=== PATIENT | female | born 1985 | race Caucasian/White ===

== ENCOUNTER 2019-02-24 01:07 | Emergency (ER) | payer OTHER ==
[2019-02-24 01:44] LABS: #Basophils 0.1 thou/uL (0.0-0.2); #Eosinphils 0.2 thou/uL (0.0-0.7); #Monocytes 0.7 thou/uL (0.11-0.59); #Neutrophils 5.8 thou/uL (1.40-6.50); %Basophils 0.8 % (0.0-1.0); %Eosinophils 1.5 % (0.0-10.0); %Lymphocytes 37.2 % (21.0-51.0); %Monocytes 6.7 % (0.0-10.0); %Neutrophils 53.9 % (42.0-75.0); Hemoglobin 13.3 g/dL (12.0-16.0); Mean Corpuscular HGB CONC 35.1 g/dL (32.0-36.0); Mean Corpuscular Hemoglobin 33.4 pg (27.0-31.0); Mean Platelet Volume 8.7 fL (7.4-10.4); Platelet Count 240 thou/uL (130-400); RBC Distribution Width 11.4 % (11.5-14.5); White Blood Cell (WBC) Count 10.8 thou/uL (4.8-10.8)
[2019-02-24 01:51] LABS: Bilirubin Negative (Negative); Blood, Urine Negative (Negative); Clarity CLEAR (Clear); Glucose, Urine (Dipstick) Negative (Negative); Leukocyte Negative (Negative); Nitrite Negative (Negative); Pregnancy Test - Urine (BHCG) Negative (Negative); Pregu Control Background? CLEAR/WHITE (CLR/WHITE); Pregu Control Bar Appear? YES (CONTROL BAR); Protein, Urine (Dipstick) Negative (Neg-Trace); Specific Gravity, Urine 1.026 (1.002-1.036); Urobilinogen 0.2 mg/dL (0.2-1.0); pH, Urine 6.5 (5.0-9.0)
[2019-02-24 01:52] LABS: Specific Gravity 1.026 (1.002-1.036)
[2019-02-24 02:01] LABS: ALT (SGPT) 40 U/L (8-55); AST (SGOT) 23 U/L (5-34); Albumin 4.1 g/dL (3.5-5.0); Alkaline Phosphatase 55 U/L (40-150); Anion Gap 12 mmol/L (10-20); BUN (Urea Nitrogen) 14 mg/dL (7.0-18.7); Bilirubin, Total 0.4 mg/dL (0.2-1.2); Calc. Creatinine Clearance 0 mL/min (70-130); Carbon Dioxide 24 mmol/L (22-29); Chloride 106 mmol/L (98-107); Estimated GFR-MDRD 78; Globulin 2.7 g/dL (2.4-3.5); Glucose 107 mg/dL (70-105); Lipase 24 U/L (8-78); Potassium 3.7 mmol/L (3.5-5.1); Protein, Total 6.8 g/dL (6.0-8.3); Sodium 138 mmol/L (136-145)
[2019-02-24] MEDS ORDERED: Ketorolac Tromethamine 30 MG/ML VIAL ONE (02:36)
[2019-02-24] MEDS ORDERED: cefTRIAXone\\ROCEPHIN 250 MG VIAL ONE (03:40)
[2019-02-24] MEDS ORDERED: Lidocaine 1% PF 5 ML VIAL ONE (03:40)
[2019-02-25 19:07] LABS: Chlamydia by PCR Not Detected (NotDetected); GC by PCR Not Detected (NotDetected)
== END 2019-02-24 04:15 | disposition home or self-care (01) ==
LOC: ERS 01:07
DX: N73.9 Female pelvic inflammatory disease, unspecified (principal); E78.2 Mixed hyperlipidemia; F41.9 Anxiety disorder, unspecified; Z79.899 Other long term (current) drug therapy
CPT/HCPCS: 36415; 80053; 81003; 81025; 83690; 85025; 87480; 87491; 87510; 87591; 87660; 96372; J0696; J1885; J2001

== ENCOUNTER 2019-03-10 00:24 | Emergency (ER) | payer OTHER ==
[2019-03-10 01:00] LABS: Bilirubin Negative (Negative); Blood, Urine Negative (Negative); Clarity CLEAR (Clear); Glucose, Urine (Dipstick) Negative (Negative); Leukocyte Small (Negative); Nitrite Negative (Negative); Protein, Urine (Dipstick) Trace mg/dL (Neg-Trace); Specific Gravity, Urine 1.031 (1.002-1.036); Urobilinogen 0.2 mg/dL (0.2-1.0)
[2019-03-10 01:02] LABS: Bacteria/HPF None Seen HPF (None Seen); Hyaline Casts/LPF 0-3 HYALINE CAST LPF (0-3 Hyaline); Pathc Cast-AUWi Flag 0.54 (0-2.49); RBC/HPF 0-3 HPF (0-3)
[2019-03-10 02:31] LABS: Pregnancy Test - Urine (BHCG) Negative (Negative); Pregu Control Background? CLEAR/WHITE (CLR/WHITE); Pregu Control Bar Appear? YES (CONTROL BAR)
[2019-03-10 02:32] LABS: Specific Gravity 1.031 (1.002-1.036)
[2019-03-11 00:34] LABS: Chlamydia by PCR Not Detected (NotDetected); GC by PCR Not Detected (NotDetected)
== END 2019-03-10 03:20 | disposition home or self-care (01) ==
LOC: ERS 00:24
DX: N39.0 Urinary tract infection, site not specified (principal); E78.2 Mixed hyperlipidemia; F41.9 Anxiety disorder, unspecified
CPT/HCPCS: 81003; 81015; 81025; 87480; 87491; 87510; 87591; 87660; 99283

== ENCOUNTER 2019-05-23 06:32 | Outpatient (CLI) | payer OTHER ==
--- NOTE | 2019-05-23 07:47 | ULT ---
THYROID ULTRASOUND: CLINICAL HISTORY: Thyroid goiter. COMPARISON: No prior comparison imaging. FINDINGS: Right thyroid lobe length is 4.7 cm and the left thyroid lobe length is 5 cm. Thyroid isthmus is thi ckened at 5 mm. There is a small solid echotexture nodule of the posterior aspect of the mid left th yroid lobe, 4 mm in size. Inferiorly within the left thyroid lobe there is a hypoechoic nodule, 7 mm in size. No dominant right thyroid nodule is seen. IMPRESSION: Subcentimeter mildly complex, left thyroid lobe nodules, recommend a 6-month followup exam to confirm stability. POS: LOR
--- NOTE | 2019-05-23 08:10 | ULT ---
PELVIC ULTRASOUND: HISTORY: Irregular menstruation. FINDINGS: Real-time imaging of the pelvis was obtained both transabdominally as well as with an endovaginal pro be. This shows a uterus measuring 3.3 x 5.4 x 7.5 cm in length. The endometrium is in the 6-7 mm ra nge. The right ovary shows tiny follicles. There is a more irregularly shaped dominant follicle on the le ft measuring 1.4 x 1.7 cm. There is what may be some fluid just adjacent to this. There is no free fluid seen in the cul-de-sac. DOPPLER EVALUATION WITH SPECTRAL ANALYSIS: Normal flow is shown to both adnexa. IMPRESSION: Somewhat prominent follicles involving the left adnexa with an irregularly shaped follicle probably r elated to stage of menstrual cycle and partial rupture. POS: TRACEE
== END 2019-05-23 06:33 | disposition home or self-care (01) ==
LOC: BICULT 06:32
PROVIDERS: ATTEND Obstetrics & Gynecology
DX: N92.6 Irregular menstruation, unspecified (principal); E04.2 Nontoxic multinodular goiter
CPT/HCPCS: 76536; 76856

== ENCOUNTER 2020-12-21 08:29 | Outpatient (CLI) | payer OTHER ==
--- NOTE | 2020-12-21 09:30 | ULT ---
Exam: Right upper quadrant ultrasound: HISTORY: Mid epigastric abdominal pain for 2 weeks. Fatty liver. COMPARISON: None FINDINGS: Liver: Increased in echogenicity suggesting hepatic steatosis. A masslike hypoechoic area is seen in the posterior aspect left hepatic lobe measuring 4 cm. This may represent a focal area of fatty sparing, but CT examination is recommended for confirmation and to exclude possibility of a mass. Gallbladder: No evidence of gallbladder calculi, gallbladder wall thickening, or pericholecystic flui d. Common bile duct: The common duct is normal in caliber measuring 0.4 cm in diameter. Pancreas: Limited visualized portions of the pancreas demonstrate a normal sonographic appearance. Right kidney: Right kidney demonstrates a normal sonographic appearance. The right kidney measures 1 0.1 cm in length. IVC: The visualized IVC demonstrates a normal sonographic appearance. IMPRESSION: 1. Hepatic steatosis with masslike hypoechoic area seen posterior aspect left hepatic lobe measuring 4 cm in greatest dimension. This may represent focal area of fatty sparing. However, a follow-up CT scan examination with and without IV contrast is recommended for confirmation and to exclude lesion i n this region. 2. No gallbladder calculi are seen, and the common duct is normal in caliber.
== END 2020-12-21 08:30 | disposition home or self-care (01) ==
LOC: BICULT 08:29
PROVIDERS: ATTEND Family Medicine
DX: K76.0 Fatty (change of) liver, not elsewhere classified (principal)
CPT/HCPCS: 76705

== ENCOUNTER 2021-05-24 18:30 | Outpatient (CLI) | payer OTHER | END 2021-05-24 18:31 | disposition home or self-care (01) | LOC: SLEEPLAB 18:30 | PROVIDERS: ATTEND Family Medicine | DX: G47.10 Hypersomnia, unspecified (principal); G47.33 Obstructive sleep apnea (adult) (pediatric); G47.00 Insomnia, unspecified; J34.2 Deviated nasal septum; R06.83 Snoring; E66.9 Obesity, unspecified; Z68.30 Body mass index [BMI] 30.0-30.9, adult | CPT/HCPCS: 95806 ==